=== PATIENT | female | born 2000 | race Caucasian/White ===

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

== ENCOUNTER → 2020-04-03 13:30 | Outpatient (CLI) | payer OTHER, SELFPAY ==
[2020-04-04 08:53] LABS: Covid-19 Nasal PCR Sendout Lex NOT DETECTED
== END ==
PROVIDERS: Visit Provider Nurse Practitioner Family
DX: Z20.828 Contact with and (suspected) exposure to other viral communicable diseases (principal)
CPT/HCPCS: U0004

== ENCOUNTER → 2020-06-12 18:18 | Outpatient (CLI) | payer OTHER, SELFPAY | PROVIDERS: Visit Provider Nurse Practitioner Family | DX: Z20.828 Contact with and (suspected) exposure to other viral communicable diseases (principal); U07.1 COVID-19 | CPT/HCPCS: U0003 ==

== ENCOUNTER 2022-01-20 08:02 | Outpatient (RCR) | payer OTHER, MEDICAID, SELFPAY | END 2022-01-20 10:35 | disposition home or self-care (01) | LOC: PT 08:02 | PROVIDERS: Visit Provider Internal Medicine Adolescent Medicine | DX: Q93.88 Other microdeletions (principal) ==

== ENCOUNTER 2023-01-12 08:20 | Day surgery (SDC) | payer OTHER, MEDICAID, SELFPAY ==
[2023-01-12] VITALS (9 sets, daily range): BP systolic 103–116; BP diastolic 52–78; PULSE 63–83; RESP 16–18; TEMP 36.1–38; O2SAT 94–100; BMI 25.0
[2023-01-12 08:55] LABS: Urine Pregnancy, HCG Qual. Negative (Negative)
--- NOTE | 2023-01-12 10:09 | EXP.ANES.CKL ---
[facility] Disclaimer: The information contained in this section may have been updated after the patient was seen, as this information can be updated by other users. Medical History (Updated 01/12/23 @ 08:50 by Rebecca Pizarro RN) Depression Hypertension Surgical History (Updated 01/12/23 @ 08:51 by Rebecca Pizarro RN) History of dental surgery Family History (Updated 01/12/23 @ 08:51 by Rebecca Pizarro RN) Other Colon cancer Lung cancer Social History (Updated 01/12/23 @ 08:52 by Rebecca Pizarro RN) Smoking Status: Never smoker alcohol intake: never substance use type: denies use current occupational status: disabled Travel in the last 8 weeks: None household members: family housing: house [facility] Anesthesia Checklist Patient Identification Patient Identification: Arm Band and Family Structural Data Admitted From: Home Planned Operative Procedure/s: Oral Exam, Xrays, Deep Cleaning and Scalings, Fillings, Extractions, Crowns Consent for Planned Operative Procedure(s) Verified: Yes Verified Documents: Surgical Consent and History and Physical NPO Status Verified Time NPO: 00:00 Additional verifications Anesthesia Reactions: No Hx Blood Transfusions: No Blood Transfusion Reaction: No Airway Assessment C-Spine Mobility Assessed: Yes TMJ Mobility Assessed: Yes Dentition: Good Dentition Neurological Assessment Level of Consciousness: Awake and Alert Anesthesia Plan Anesthesia Risk discussed: Yes Anesthesia Plan: Verified ASA Class: II Anesthesia Type: General
--- NOTE | 2023-01-12 13:09 | EXP.ANES.I ---
[facility] Anesthesia Record Part I Anesthesia Record I Intake, IV Amount: 1,300 Estimated blood loss (mL): 5 Urine output (mL): 0 Blood Products used (#): none Blood Pressure: 116/52 SaO2: 94 Pulse Rate: 63 Respiratory Rate: 16 Temperature: 98.4 F Patient is:: Drowsy and Stable Stable to PACU at:: 13:05
--- NOTE | 2023-01-12 13:14 | P.PCN_ITS ---
Operative Note Date of procedure: 01/12/23 Date of : 00 Pre-op Diagnosis:: dental decay Post-op diagnosis:: other Procedure performed:: The 22, F patient was transported to the [facility] OR pre operative holding room per her parents. In the holding room, an IV was started. The patient was then transported to the operating room where Phoebe was nasotracheal intubated. Anesthesia was induced and maintained. The patient was draped in the usual manner. 18 intraoral x-rays were taken. The throat was suctioned free of debris. One single moist throat pack was placed in the posterior oral pharynx. A complete intra-oral exam and review of the complete set of x-rays was completed. Periodontal scaling and root planing was done in all four quadrants. The patient was found to have a Root Canal performed on tooth #9, Stainless steel crown was placed on tooth #30, cemented with Durelon cement. Amalgam fillings were placed on tooth #12-DO surfaces, #28-DO surfaces, #13-MOD surfaces, #14-MOL surfaces, #29-MOD surfaces, #31-MOBL surfaces. Composite fillings were placed on tooth #27-MLF surfaces, #10-MLF surfaces, #25-DLF surfaces, #9-DLFI surfaces, and #26-MDLF surfaces. Fillings were filled with B1 white resin filling material. Bite checked The patient was given 4 capules, 144mg of Octacaine with Epinephrine 1:100,000 which was 0.3mg for postoperative pain control. Estimated blood loss was 5cc. The patient tolerated all surgical procedures well and there were no surgical complications. The throat was irrigated and suctioned free of debris. The throat pack was removed. The patient was extubated without complications and taken to the postoperative anesthetic recovery room in satisfactory condition. Surgeon:: Amelia Alexander DMD Sand Hauler(s):: Emilia Bowers OUTSIDE MACHINIST HELPER:: Arden Sparrow Anesthesia: GETJada Estimated blood loss (mL): 5 Operative note:: same as procedure performed Disposition: PACU Specimens:: none Complications:: none
--- NOTE | 2023-01-12 14:10 | SUR.PHASEII ---
pt came to post op with a swollen lower lip. per Martín Sparrow INSPECTOR [employer]SIDE [employer] gave benadryl 10 minutes prior to PACU. Lip does appear better and less swollen upon discharge.
== END 2023-01-12 14:05 | disposition home or self-care (01) ==
PROVIDERS: PCP Pediatrics; Visit Provider Dentist General Practice
PROC: (CPT 41899; principal; 2023-01-12 09:45)
DX: K02.9 Dental caries, unspecified (principal); F84.0 Autistic disorder; F43.0 Acute stress reaction
CPT/HCPCS: 41899; 81025; J2405; J2710